=== PATIENT | female | born 1935 | race Caucasian/White ===

== ENCOUNTER 2022-12-26 18:24 | Outpatient (CLI) | payer MEDICARE | END 2022-12-26 23:59 | disposition critical access hospital (66) | LOC: EMS 18:24 | DX: R51.9 Headache, unspecified (principal); W18.30XA Fall on same level, unspecified, initial encounter; Y92.099 Unspecified place in other non-institutional residence as the place of occurrence of the external cause; U07.1 COVID-19 | CPT/HCPCS: A0425; A0429 ==

== ENCOUNTER 2022-12-26 18:57 | Emergency (ER) | payer MEDICARE ==
--- NOTE | 2022-12-26 20:42 | ED Physician Documentation ---
PD HPI HEAD INJURY - Stated complaint Stated Complaint: C+, GLF, HIT HEAD - Chief complaint Chief Complaint: Trauma Hd/Nk - History obtained from History obtained from: Patient, Family - Additional information Additional information: Patient is an 87-year-old female with a history of dementia lives at a [facility]ci/memory care unit. Today she was found on the ground and has a small bump to the back of her head. She is not on blood thinners. She does not know what happened. No other history is available. Review of Systems Unable to obtain: Dementia PD PAST MEDICAL HISTORY - Past Medical History Past Medical History: Yes Cardiovascular: Hypertension, High cholesterol Neuro: Dementia Endocrine/Autoimmune: Type 2 diabetes - Present Medications Home Medications: Ambulatory Orders Medication Instructions Recorded Confirmed Donepezil [Aricept] 5 mg PO DAILY 12/26/22 12/26/22 Meloxicam [Mobic] 7.5 mg PO DAILY 12/26/22 12/26/22 Metoprolol Succinate 100 mg PO QPM 12/26/22 12/26/22 Sertraline HCl [Zoloft] 50 mg PO DAILY 12/26/22 12/26/22 Simvastatin [Zocor] 40 mg PO DAILY 12/26/22 12/26/22 metFORMIN [Glucophage] 500 mg PO BIDWM 12/26/22 12/26/22 - Allergies Allergies/Adverse Reactions: Allergies Allergy/AdvReac Type Severity Reaction Status Date / Time No Known Drug Allergies Allergy Verified 12/26/22 19:09 - Social History Does the pt smoke?: No Smoking Status: Never smoker PD ED PE NORMAL - Vitals Vital signs reviewed: Yes - General General: No acute distress, Well developed/nourished, Other (Alert, pleasantly confused.) - HEENT HEENT: PERRL, Moist mucous membranes, Pharynx benign, Other (Small posterior scalp hematoma. No palpable skull fractures.) - Neck Neck: Supple, no meningeal sign, No bony TTP - Cardiac Cardiac: RRR - Respiratory Respiratory: No respiratory distress, Clear bilaterally - Abdomen Abdomen: Soft, Non tender, Non distended - Back Back: No spinal TTP - Derm Derm: Warm and dry - Extremities Extremities: Normal ROM s pain - Neuro Neuro: measurement and sensing technician 2-12 intact, No motor deficit, No sensory deficit, Normal speech Eye Opening: Spontaneous Motor: Obeys Commands Verbal: Confused GCS Score: 14 Results - Vitals Vitals: Vital Signs - 24 hr 12/26/22 12/26/22 18:57 22:06 Temperature 37.3 C Heart Rate 70 64 Respiratory 16 16 Rate Blood Pressure 204/89 H 186/82 H O2 Saturation 96 99 Oxygen O2 Source Room air - Rads (name of study) head CT Relevant Findings:: Final report received, See rad report PD Medical Decision Making - ED course Complexity details: reviewed results, re-evaluated patient, considered differential, d/w family ED course: 87-year-old female with dementia status post unwitnessed ground-level fall. Her daughter is here with her. The patient is not on any blood thinners. We discussed head CT and they would like to have the head CT. Head CT is negative. There are no other acute injuries. No fevers. No vomiting. No indication for blood work or urinalysis at this time. Patient is at her normal mental baseline. Family counseled regarding signs and symptoms for which I believe and urgent re-evaluation would be necessary. Family with good understanding of and agreement to plan and is comfortable going home at this time This document was made in part using voice recognition software. While efforts are made to proofread this document, sound alike and grammatical errors may oc cur. Departure - Departure Disposition: 01 Home, Self Care Clinical Impression: Closed head injury Qualifiers: Encounter type: initial encounter Qualified Code(s): S09.90XA - Unspecified injury of head, initial encounter Condition: Good Instructions: ED Head Injury Closed Follow-Up: your,doctor as needed [Other] Comments: Her head CT does not show any acute abnormalities tonight. Please follow-up with her doctor for further care. Please return if she worsens. Discharge Date/Time: 12/26/22 22:06
--- NOTE | 2022-12-26 21:35 | CT Report ---
PROCEDURE: HEAD WO INDICATIONS: fall, head injury TECHNIQUE: Noncontrast 4.5 mm thick angled axial sections acquired from the foramen magnum to the vertex. For r adiation dose reduction, the following was used: automated exposure control, adjustment of mA and/or kV according to patient size. COMPARISON: None. FINDINGS: Image quality: There is extensive motion artifact limiting evaluation. CSF spaces: There is moderate cerebral volume loss with prominence of the ventricles and sulci. Basa l cisterns are patent. No extra-axial fluid collections. Brain: No definite intracranial hemorrhage, mass, or mass effect. Mireles-white matter interface is pre served. There are subcortical and periventricular white matter hypodensities consistent with moderate chronic small vessel ischemic changes. Skull and face: Calvarium and visualized facial bones are intact, without suspicious lesions. Sinuses: Visualized sinuses and mastoids are clear. IMPRESSION: 1. No definite acute intracranial abnormality, with evaluation limited by motion artifact. Consider a repeat study when clinically feasible if indicated. 2. Moderate cerebral volume loss and chronic white matter small vessel ischemic changes. Reviewed by: Frankie Watkins MD on 12/26/2022 9:34 PM PDT Approved by: Frankie Watkins MD on 12/26/2022 9:34 PM PDT Station ID: [id number]
[2022-12-26 22:06] VITALS: BP 186/82
== END 2022-12-26 22:06 | disposition home or self-care (01) ==
LOC: ED 18:57
DX: S09.90XA Unspecified injury of head, initial encounter (principal); W19.XXXA Unspecified fall, initial encounter; Y92.199 Unspecified place in other specified residential institution as the place of occurrence of the external cause; F03.90 Unspecified dementia, unspecified severity, without behavioral disturbance, psychotic disturbance, mood disturbance, and anxiety
CPT/HCPCS: 99282; 99284

== ENCOUNTER 2023-01-04 05:50 | Outpatient (CLI) | payer MEDICARE | END 2023-01-04 23:59 | disposition critical access hospital (66) | LOC: EMS 05:50 | DX: S00.01XA Abrasion of scalp, initial encounter (principal); S20.229A Contusion of unspecified back wall of thorax, initial encounter; W18.30XA Fall on same level, unspecified, initial encounter; Y92.091 Bathroom in other non-institutional residence as the place of occurrence of the external cause | CPT/HCPCS: A0425; A0429 ==

== ENCOUNTER 2023-01-04 06:15 | Emergency (ER) | payer MEDICARE ==
--- NOTE | 2023-01-04 06:58 | ED Physician Documentation ---
PD HPI Fall - Stated complaint Stated Complaint: GLF/HEAD INJ - Chief complaint Chief Complaint: Trauma Hd/Nk - History obtained from History obtained from: Patient, Family (daughter states the patient has had less intake recently and less fluid intake.), EMS (Medics called by [facility] staff due to finding patient on floor, la on back of head. Unwitnessed fall. Patient alert and responsive. Does not remember circumstances.) - History of Present Illness Mechanism of injury: Unknown Fall distance: Standing position Where injury occurred: Other ([facility]) Timing - onset: Today Injury(ies) location: Head Associated symptoms: No: AMS, Neck pain, Nausea / vomiting Worsens with: Palpation Contributing factors: No: Anticoagulated Similar symptoms before: No diagnosis (had a fall with striking back of head within the last month, and appeared at baseline dementia/interaction at that time, per prior ER note.) Recently seen: Emergency Dept (for similar fall and had head CT. No other testing at that time. Dx with COVID the day prior to that and is still in recovering from the illness.) Review of Systems Unable to obtain: Dementia, Other (she is able to answer about current symptoms.) Eyes: denies: Loss of vision Cardiac: denies: Chest pain / pressure GI: denies: Abdominal Pain, Nausea, Vomiting Neurologic: denies: Focal weakness, Headache PD PAST MEDICAL HISTORY - Past Medical History Past Medical History: Yes Cardiovascular: Hypertension, High cholesterol Neuro: Dementia Endocrine/Autoimmune: Type 2 diabetes - Past Surgical History Past Surgical History: No - Present Medications Home Medications: Ambulatory Orders Medication Instructions Recorded Confirmed Donepezil [Aricept] 5 mg PO DAILY 12/26/22 01/04/23 Meloxicam [Mobic] 7.5 mg PO DAILY 12/26/22 01/04/23 Metoprolol Succinate 100 mg PO QPM 12/26/22 01/04/23 Sertraline HCl [Zoloft] 50 mg PO DAILY 12/26/22 01/04/23 Simvastatin [Zocor] 40 mg PO DAILY 12/26/22 01/04/23 metFORMIN [Glucophage] 500 mg PO BIDWM 12/26/22 01/04/23 Magnesium Oxide [Mag Ox] 400 mg PO DAILY #10 tablet 01/04/23 - Allergies Allergies/Adverse Reactions: Allergies Allergy/AdvReac Type Severity Reaction Status Date / Time No Known Drug Allergies Allergy Verified 12/26/22 19:09 - Social History Does the pt smoke?: No Smoking Status: Never smoker Does the pt drink ETOH?: No Does the pt have substance abuse?: No - Immunizations Immunizations are current?: Yes - POLST Patient has POLST: No PD ED PE NORMAL - Vitals Vital signs reviewed: Yes (elevated blood pressure) - General General: Alert and oriented X 3, No acute distress, Well developed/nourished, Other (She seems unaware of being injury and expressed surprise when told she had fallen and had laceration on her scalp. ) - HEENT HEENT: Other (laceration at occiput with some tenderness. About 1.5 cm with mild bleeding. ) - Neck Neck: Supple, no meningeal sign, No bony TTP - Cardiac Cardiac: RRR - Respiratory Respiratory: Clear bilaterally, Other (no chestwall tenderness) - Abdomen Abdomen: Soft, Non tender - Derm Derm: Normal color, Warm and dry - Extremities Extremities: Normal ROM s pain - Neuro Neuro: No motor deficit, No sensory deficit, Normal speech Eye Opening: Spontaneous Motor: Obeys Commands Verbal: Confused GCS Score: 14 Results - Vitals Vitals: Vital Signs - 24 hr 01/04/23 01/04/23 01/04/23 06:21 06:25 07:10 Temperature 36.4 C L Heart Rate 64 64 67 Respiratory 17 21 16 Rate Blood Pressure 191/92 H 191/92 H 220/111 H O2 Saturation 95 96 99 01/04/23 01/04/23 01/04/23 07:58 09:04 09:30 Temperature Heart Rate 64 56 L 65 Respiratory 16 16 16 Rate Blood Pressure 172/95 H 202/99 H 197/80 H O2 Saturation 97 100 96 01/04/23 10:00 Temperature Heart Rate 62 Respiratory 16 Rate Blood Pressure 190/78 H O2 Saturation 96 Oxygen O2 Source Room air - Labs Labs: Laboratory Tests 01/04/23 01/04/23 01/04/23 07:19 07:19 07:19 WBC 12.2 H RBC 3.92 L Hgb 11.5 L Hct 33.1 L MCV 84.4 MCH 29.3 MCHC 34.7 RDW 12.4 Plt Count 399 MPV 9.4 Neut # (Auto) 9.3 H Lymph # (Auto) 1.0 L [place] # (Auto) 1.1 H Eos # (Auto) 0.4 Baso # (Auto) 0.1 Absolute Nucleated RBC 0.00 Nucleated RBC % 0.0 Sodium 123 L Potassium 3.5 Chloride 87 L Carbon Dioxide 25 Anion Gap 11.0 BUN 20 Creatinine 0.8 Estimated GFR (MDRD) 68 L Glucose 130 H Calcium 9.5 Magnesium 1.5 L Total Bilirubin 0.6 AST 27 ALT 25 Alkaline Phosphatase 83 Total Protein 7.2 Albumin 3.8 Globulin 3.4 Albumin/Globulin Ratio 1.1 Lipase 62 H TSH 0.78 - Rads (name of study) head CT Relevant Findings:: Prelim report reviewed, EMP independent interpretation of test (age related changes. No noted ICH. ), See rad report Procedures - Laceration (location) occipital scalp Length in cm: 1 (has some bleeding coming from it. ) Wound type: Linear, Into subcut fat, Clean Neurovascular status: Sensory intact Anesthesia: Lidocaine 1% with epi Wound preparation: Irrigated copiously NS, Wound explored, To the base Skin layer closure: Nylon, Interrupted, Size #-0 - enter number (4), Sutures - enter # (2) Other: Patient tolerated well, No complications, Tetanus UTD PD Medical Decision Making - ED course Complexity details: reviewed results (electrolyte imbalance with Mag 1.5 and Potassium 123. She is alert and conversant though, suggesting likely chronic hyponatremia. I do not have prior labs available.), considered differential (seems fall with head impact. She has had 2 falls recently which daughter says is unusual for her. I felt further testing for labs indicated. ), d/w patient, d/w family (daughter gave info of pt being ill the past 1-2 weeks with less oral intkae and having general weakness. ) Drug Therapy Requiring Monitoring for Toxicity: given IV fluids for less intake by report. No edema nor crackles. BP improved from high to moderate. She remains quite alert. Daughter says she is at baseline mentation with much forgetfulness. However is not seeming concussive. she is not much altered with the low sodium, which suggests more likely chronic low to some degree. Departure - Departure Disposition: 01 Home, Self Care Clinical Impression: Accidental fall, COVID-19, Decrease in appetite, Hyponatremia, Hypomagnesemia, Occipital scalp laceration Condition: Stable Record reviewed to determine appropriate education?: Yes Instructions: ED Laceration Scalp Stitch Or Stap Follow-Up: FABY NICE MD [Physician No Access] - Prescriptions: Magnesium Oxide [Mag Ox] 400 mg PO DAILY #10 tablet Comments: It is okay to wash and shower. Clean off the wound twice a day with soap and water, or peroxide and water. Apply some antibiotic ointment to it to keep it moist. Also to watch for signs of infection such as purulence, redness or increasing pain. Return to your primary care or the ER at the specified time for suture removal. Suture removal 8 to 10 days. You have had 2 falls over the past week. Presumably related to your recent viral illness with COVID and under hydration and less appetite. This seems to have affected some of your electrolytes with a low magnesium and low sodium. We have given you some IV supplements of these here in the ER but you will want to likely take a magnesium supplement for the next week or so. The salt will correct which is normal intake of food and I would not suggest higher salt foods, especially in light of her your high blood pressure. Otherwise continue your current medications. Have your primary care recheck your electrolytes next week to see if they are looking more in line. If they remain low then other consideration may be a side effect to one of your medicines. Of your medications, the only one I found associated with hyponatremia (low sodium) is the sertraline. If your low sodium is persistent then that may need to be decreased. Otherwise improve intake fluids and food now that you are feeling little bit better. Discharge Date/Time: 01/04/23 10:36
[2023-01-04 07:28] LABS: BASOPHILS # (AUTO) 0.1 10^3/uL (0.0-0.1); BASOPHILS % (AUTO) 0.7 %; EOSINOPHILS # (AUTO) 0.4 10^3/uL (0.0-0.7); EOSINOPHILS % (AUTO) 3.1 %; HCT - HEMATOCRIT 33.1 % (37.0-47.0); HGB - HEMOGLOBIN 11.5 g/dL (12.0-16.0); LYMPHOCYTES % (AUTO) 7.9 %; MEAN CORPUSCULAR HEMOGLOBIN 29.3 pg (27.0-31.0); MEAN CORPUSCULAR HGB CONC 34.7 g/dL (32.0-36.0); MEAN CORPUSCULAR VOLUME 84.4 fL (81.0-99.0); MEAN PLATELET VOLUME 9.4 fL (7.9-10.8); MONOCYTES # (AUTO) 1.1 10^3/uL (0.0-1.0); MONOCYTES % (AUTO) 8.9 %; NEUTROPHILS # (AUTO) 9.3 10^3/uL (1.5-6.6); NEUTROPHILS % (AUTO) 76.2 %; PLT - PLATELET COUNT 399 10^3/uL (130-450); RED BLOOD COUNT 3.92 10^6/uL (4.20-5.40); RED CELL DISTRIBUTION WIDTH 12.4 % (12.0-15.0); WHITE BLOOD COUNT 12.2 x10^3/uL (4.8-10.8)
[2023-01-04] MEDS ORDERED: METOPROLOL SUCCINATE 50 MG TABLET PO STA (07:32)
[2023-01-04 07:35] LABS: ALBUMIN 3.8 g/dL (3.2-5.5); ALBUMIN/GLOBULIN RATIO 1.1 (1.0-2.2); BILIRUBIN,TOTAL 0.6 mg/dL (0.2-1.0); CALCIUM 9.5 mg/dL (8.5-10.3); CREATININE 0.8 mg/dL (0.4-1.0); MAGNESIUM 1.5 mg/dL (1.7-2.8); POTASSIUM 3.5 mmol/L (3.5-5.0); TOTAL PROTEIN 7.2 g/dL (6.7-8.2)
[2023-01-04] MEDS ORDERED: SODIUM CHLORIDE 0.9% 1,000 ML IV STA (07:49)
[2023-01-04] MEDS ORDERED: MAGNESIUM SULFATE 2 GRAM 2 GM/50 ML BAG IV ONE (08:11)
--- NOTE | 2023-01-04 08:22 | CT Report ---
PROCEDURE: HEAD WO INDICATIONS: head injury TECHNIQUE: Noncontrast 4.5 mm thick angled axial sections acquired from the foramen magnum to the vertex. For r adiation dose reduction, the following was used: automated exposure control, adjustment of mA and/or kV according to patient size. COMPARISON: None. FINDINGS: Image quality: Excellent. The ventricular system and cortical sulci demonstrate atrophy, consistent for patient's stated age. There are areas of hypodensity in the periventricular and subcortical white matter. There is no acut e intra or extra-axial fluid collection. No acute hemorrhage, mass lesion or midline shift. Brainst em is unremarkable. Globes are symmetrical. Sinuses are aerated. Osseous structures are intact. Posterior scalp hematoma is present. IMPRESSION: 1. No acute intracranial process. 2. Moderate atrophy and chronic microvascular ischemic changes. 3. Posterior scalp hematoma. Reviewed by: Delia Mills MD on 01/04/2023 8:21 AM PDT Approved by: Delia Mills MD on 01/04/2023 8:21 AM PDT Station ID: [id number]
[2023-01-04 10:14] VITALS: BP 190/78
== END 2023-01-04 10:36 | disposition home or self-care (01) ==
LOC: EDUNIT# → ED 06:15
DX: S01.01XA Laceration without foreign body of scalp, initial encounter (principal); W19.XXXA Unspecified fall, initial encounter; U07.1 COVID-19; E87.1 Hypo-osmolality and hyponatremia; E83.42 Hypomagnesemia; I10 Essential (primary) hypertension; E11.9 Type 2 diabetes mellitus without complications; Z79.84 Long term (current) use of oral hypoglycemic drugs
CPT/HCPCS: 36415; 70450; 80053; 83690; 83735; 84443; 85025; 93005; 96365; 99284; A9270

== ENCOUNTER 2023-02-02 19:24 | Outpatient (CLI) | payer MEDICARE | END 2023-02-02 23:59 | disposition critical access hospital (66) | LOC: EMS 19:24 | DX: S51.011A Laceration without foreign body of right elbow, initial encounter (principal); R11.10 Vomiting, unspecified; W18.30XA Fall on same level, unspecified, initial encounter; Y92.099 Unspecified place in other non-institutional residence as the place of occurrence of the external cause | CPT/HCPCS: A0425; A0429 ==

== ENCOUNTER 2023-02-02 19:50 | Emergency (ER) | payer MEDICARE ==
--- NOTE | 2023-02-02 20:05 | ED Physician Documentation ---
History of Present Illness - Stated complaint Stated Complaint: FELL X 2, VOMITING - Additonal information Additional information: Patient is 87-year-old female with known history of Alzheimer's dementia, gait disturbance, neuropathy in her lower extremities presenting today via EMS after to ask falls. Comes from [facility]. Report per EMS is 1 episode vomiting in between falls. Presents with right elbow skin tear. Is amnestic to events and is unable to provide further history. Denies headache, chest pain, neck pain, chest pain, abdominal pain.No current anticoagulants listed in her medications list. Review of Systems Unable to obtain: Dementia PD PAST MEDICAL HISTORY - Past Medical History Cardiovascular: Hypertension, High cholesterol Neuro: Dementia Endocrine/Autoimmune: Type 2 diabetes - Past Surgical History Past Surgical History: No - Present Medications Home Medications: Ambulatory Orders Medication Instructions Recorded Confirmed Donepezil [Aricept] 5 mg PO DAILY 12/26/22 01/04/23 Meloxicam [Mobic] 7.5 mg PO DAILY 12/26/22 01/04/23 Metoprolol Succinate 100 mg PO QPM 12/26/22 01/04/23 Sertraline HCl [Zoloft] 50 mg PO DAILY 12/26/22 01/04/23 Simvastatin [Zocor] 40 mg PO DAILY 12/26/22 01/04/23 metFORMIN [Glucophage] 500 mg PO BIDWM 12/26/22 01/04/23 Magnesium Oxide [Mag Ox] 400 mg PO DAILY #10 tablet 01/04/23 - Allergies Allergies/Adverse Reactions: Allergies Allergy/AdvReac Type Severity Reaction Status Date / Time No Known Drug Allergies Allergy Verified 12/26/22 19:09 - Social History Does the pt smoke?: No Smoking Status: Never smoker Does the pt drink ETOH?: No Does the pt have substance abuse?: No - Immunizations Immunizations are current?: Yes - POLST Patient has POLST: No PD ED PE NORMAL - General General: Alert and oriented X 3 (Alert to self), No acute distress, Well developed/nourished, Other - HEENT HEENT: Atraumatic, PERRL, EOMI, Ears normal - Neck Neck: Supple, no meningeal sign, No bony TTP, No adenopathy - Cardiac Cardiac: RRR, No gallop - Respiratory Respiratory: No respiratory distress, Clear bilaterally - Abdomen Abdomen: Normal bowel sounds, Soft, Non tender - Female Female : Deferred - Rectal Rectal: Deferred - Derm Derm: Other (There is a 1 cm skin tear to the right elbow. Full and complete range of motion to the right elbow, shoulder, wrist. Radial and ulnar pulses palpable. Normal capillary refill distal to the site of injury.) - Neuro Neuro: Alert and oriented X 3, court crier 2-12 intact, No motor deficit, Normal speech - Psych Psych: Normal mood Results - Vitals Vitals: Vital Signs - 24 hr 02/02/23 02/02/23 19:58 21:02 Temperature 36.4 C L Heart Rate 54 L 57 L Respiratory 18 18 Rate Blood Pressure 153/98 H 172/73 H O2 Saturation 99 99 Oxygen O2 Source Room air - EKG (time done) 2026 EKG releavant findings:: EKG personally interpreted by author of this note. Relevant findings are: Sinus rhythm with rate 87 bpm. Left axis deviation. ND notable prolonged at 204 ms. Normal QRS and QTc intervals. No ST segment elevations. Nonspecific ST and T wave abnormalities noted in the inferior leads. No change from previous 01/04/2023. - Labs Labs: Laboratory Tests 02/02/23 02/02/23 20:43 20:43 WBC 11.2 H RBC 3.68 L Hgb 10.5 L Hct 31.6 L MCV 85.9 MCH 28.5 MCHC 33.2 RDW 13.7 Plt Count 296 MPV 9.1 Neut # (Auto) 8.9 H Lymph # (Auto) 0.9 L [place] # (Auto) 1.0 Eos # (Auto) 0.1 Baso # (Auto) 0.1 Absolute Nucleated RBC 0.00 Nucleated RBC % 0.0 Sodium 125 L Potassium 4.5 Chloride 88 L Carbon Dioxide 24 Anion Gap 13.0 BUN 18 Creatinine 0.8 Estimated GFR (MDRD) 68 L Glucose 127 H Calcium 9.8 Total Bilirubin 0.7 AST 17 ALT 14 Alkaline Phosphatase 66 Total Protein 6.9 Albumin 3.9 Globulin 3.0 Albumin/Globulin Ratio 1.3 Lipase 53 H PD Medical Decision Making - ED course Complexity details: reviewed results, re-evaluated patient, d/w family ED course: Patient is 87-year-old female presenting to the emergency department after fall times 2X at her care facility. Past medical significant for Alzheimer's dementia, gait disturbance, peripheral neuropathy. Afebrile, hemodynamically stable on arrival to the emergency department. Alert and orientated to person only but no focal or lateralizing neurologic deficits. Very small skin tear noted on the Right elbow but otherwise appropriate range of motion with no indications of underlying fracture. EKG as outlined above demonstrated a first-degree heart block, left axis deviation and some nonspecific ST changes unchanged from baseline but no clear indication of cardiac ischemia or dysrhythmia. Labs demonstrated a chronic hyponatremia slightly improved from baseline from approximately 1 month ago.Patient also has low level anemia not significantly different from previous. Initial interpretation of CT head and C-spine negative for acute fracture or bony abnormality. Formally by radiology shows no significant traumatic injury but significant degenerative changes to the cervical spine as well as an incidental finding of a 3.3 cm thyroid mass. Information communicated directly with patient and patient's caregiver was present at bedside. Patient monitored in the emergency department for several hours without recurrent episodes of vomiting. Discussed findings with patient's daughter who is present at bedside. Will discharge back to her care facility at this time. Encourage careful follow-up with primary care. Clear return precautions given. Departure - Departure Disposition: 01 Home, Self Care Clinical Impression: Chronic hyponatremia, Thyroid mass Fall Qualifiers: Encounter type: initial encounter Qualified Code(s): W19.XXXA - Unspecified fall, initial encounter Dementia Qualifiers: Dementia type: Alzheimer's Alzheimer's disease onset: unspecified onset Dementia severity: unspecified severity Dementia behavioral or psychological symptom: unspecified whether behavioral, psychotic, or mood disturbance or anxiety Qualified Code(s): G30.9 - Alzheimer's disease, unspecified; F02.80 - Dementia in other diseases classified elsewhere, unspecified severity, without behavioral disturbance, psychotic disturbance, mood disturbance, and anxiety Comments: Thank you for allowing us to care for Heydi today at [facility]. Today in the emergency department she was evaluated for any possible life- threatening medical emergency. Overall the testing performed today including her blood work, EKG, and the CT scans of her head and cervical spine were all very reassuring. There is no finding of traumatic injury however there was an incidental finding of a 3.3 cm thyroid mass. This would be an issue to discuss with her primary care doctor to decide whether or not you would like to follow-up with outpatient testing such as a dedicated ultrasound or biopsy to this site. I do recommend careful follow-up with her primary care doctor and continued encouragement to use ambulatory assist devices at all times at her care facility. If it anytime she has new or worsening symptoms please not hesitate to return.
[2023-02-02 20:49] LABS: BASOPHILS # (AUTO) 0.1 10^3/uL (0.0-0.1); BASOPHILS % (AUTO) 0.6 %; EOSINOPHILS # (AUTO) 0.1 10^3/uL (0.0-0.7); EOSINOPHILS % (AUTO) 1.2 %; HCT - HEMATOCRIT 31.6 % (37.0-47.0); HGB - HEMOGLOBIN 10.5 g/dL (12.0-16.0); LYMPHOCYTES # (AUTO) 0.9 10^3/uL (1.5-3.5); LYMPHOCYTES % (AUTO) 8.3 %; MEAN CORPUSCULAR HEMOGLOBIN 28.5 pg (27.0-31.0); MEAN CORPUSCULAR HGB CONC 33.2 g/dL (32.0-36.0); MEAN CORPUSCULAR VOLUME 85.9 fL (81.0-99.0); MEAN PLATELET VOLUME 9.1 fL (7.9-10.8); MONOCYTES % (AUTO) 8.9 %; NEUTROPHILS # (AUTO) 8.9 10^3/uL (1.5-6.6); NEUTROPHILS % (AUTO) 80.1 %; PLT - PLATELET COUNT 296 10^3/uL (130-450); RED BLOOD COUNT 3.68 10^6/uL (4.20-5.40); RED CELL DISTRIBUTION WIDTH 13.7 % (12.0-15.0); WHITE BLOOD COUNT 11.2 x10^3/uL (4.8-10.8)
[2023-02-02 21:01] LABS: ALBUMIN 3.9 g/dL (3.2-5.5); ALBUMIN/GLOBULIN RATIO 1.3 (1.0-2.2); BILIRUBIN,TOTAL 0.7 mg/dL (0.2-1.0); CALCIUM 9.8 mg/dL (8.5-10.3); CREATININE 0.8 mg/dL (0.4-1.0); POTASSIUM 4.5 mmol/L (3.5-5.0); TOTAL PROTEIN 6.9 g/dL (6.7-8.2)
[2023-02-02] MEDS ORDERED: BACITRACIN ZINC OINT 1 PACKET TOP STA (21:13)
--- NOTE | 2023-02-02 21:54 | CT Report ---
PROCEDURE: CERVICAL SPINE WO INDICATIONS: fall, unknown LOC TECHNIQUE: Noncontrast 3 mm thick sections acquired from the skull base to the T4 level. Sagittal and coronal r eformats were then constructed. For radiation dose reduction, the following was used: automated exp osure control, adjustment of mA and/or kV according to patient size. COMPARISON: None. FINDINGS: Image quality: Excellent. Bones: No fractures or dislocations but there is moderately severe to severe degenerative disc disea se and facet osteoarthritis over the middle and lower thirds of the cervical spine. No traumatic subl uxation is seen. Visualized superior ribs are intact. Soft tissues: Prevertebral soft tissues are normal in thickness. No paravertebral hematomas. No ap ical pneumothoraces. Note is made of a 3.3 cm enlargement of the left thyroid lobe, inferiorly. IMPRESSION: No trauma to the cervical spine is seen but there is moderately severe to severe degenerative changes along the middle and lower thirds of the cervical spine. An unexpected finding is a 3.3 cm masslike structure at the left thyroid lobe inferiorly, and therefo re elective follow-up thyroid ultrasound is recommended. Reviewed by: Cooper Coulter MD on 02/02/2023 9:53 PM PDT Approved by: Cooper Coulter MD on 02/02/2023 9:53 PM PDT Station ID: [id number]
--- NOTE | 2023-02-02 21:59 | CT Report ---
PROCEDURE: HEAD WO INDICATIONS: Fall, unknown LOC TECHNIQUE: Noncontrast 4.5 mm thick angled axial sections acquired from the foramen magnum to the vertex. For r adiation dose reduction, the following was used: automated exposure control, adjustment of mA and/or kV according to patient size. COMPARISON: Prior head CT 01/04/2023.. FINDINGS: Image quality: Excellent. CSF spaces: Basal cisterns are patent. No extra-axial fluid collections. Ventricles are normal in size and shape. Brain: No midline shift. No intracranial masses or hemorrhage. Mireles-white matter interface is norm al. Skull and face: Calvarium and visualized facial bones are intact, without suspicious lesions. Sinuses: Visualized sinuses and mastoids are clear. IMPRESSION: No trauma found, age related microvascular atherosclerotic change is present within the deep white matter of each hemisphere with associated mild to moderate brain parenchymal atrophy. Reviewed by: Cooper Coulter MD on 02/02/2023 9:58 PM PDT Approved by: Cooper Coulter MD on 02/02/2023 9:58 PM PDT Station ID: [id number]
[2023-02-02 22:14] VITALS: BP 152/108
== END 2023-02-02 22:28 | disposition home or self-care (01) ==
LOC: EDUNIT# → ED 19:50
DX: G30.9 Alzheimer's disease, unspecified (principal); F02.80 Dementia in other diseases classified elsewhere, unspecified severity, without behavioral disturbance, psychotic disturbance, mood disturbance, and anxiety; E87.1 Hypo-osmolality and hyponatremia; E07.9 Disorder of thyroid, unspecified; W19.XXXA Unspecified fall, initial encounter; Z91.81 History of falling; I10 Essential (primary) hypertension
CPT/HCPCS: 36415; 70450; 72125; 80053; 83690; 85025; 93005; 99283; 99284; A9270

== ENCOUNTER 2023-03-27 01:54 | Outpatient (CLI) | payer MEDICARE | END 2023-03-27 01:55 | disposition EMS.NT | LOC: EMS 01:54 | DX: Z03.89 Encounter for observation for other suspected diseases and conditions ruled out (principal) ==

== ENCOUNTER 2023-04-09 15:27 | Outpatient (CLI) | payer MEDICARE | END 2023-04-09 23:59 | disposition critical access hospital (66) | LOC: EMS 15:27 | DX: S01.01XA Laceration without foreign body of scalp, initial encounter (principal); W18.30XA Fall on same level, unspecified, initial encounter; Y92.099 Unspecified place in other non-institutional residence as the place of occurrence of the external cause | CPT/HCPCS: A0425; A0429 ==

== ENCOUNTER 2023-04-09 15:54 | Emergency (ER) | payer MEDICARE ==
--- NOTE | 2023-04-09 16:01 | ED Physician Documentation ---
PD HPI Fall - Stated complaint Stated Complaint: GLF/HEAD LAC - History obtained from History obtained from: EMS - Additional information Additional information: 87-year-old woman who is up-to-date on tetanus per the record has severe gonzales ia. She was found down having had a ground-level fall at her assisted living home and has a cut on the back of her head. Patient has no specific complaints. She is at her baseline per EMS. PD PAST MEDICAL HISTORY - Past Medical History Cardiovascular: Hypertension, High cholesterol Neuro: Dementia Endocrine/Autoimmune: Type 2 diabetes - Past Surgical History Past Surgical History: No - Present Medications Home Medications: Ambulatory Orders Medication Instructions Recorded Confirmed Donepezil [Aricept] 5 mg PO DAILY 12/26/22 01/04/23 Meloxicam [Mobic] 7.5 mg PO DAILY 12/26/22 01/04/23 Metoprolol Succinate 100 mg PO QPM 12/26/22 01/04/23 Sertraline HCl [Zoloft] 50 mg PO DAILY 12/26/22 01/04/23 Simvastatin [Zocor] 40 mg PO DAILY 12/26/22 01/04/23 metFORMIN [Glucophage] 500 mg PO BIDWM 12/26/22 01/04/23 Magnesium Oxide [Mag Ox] 400 mg PO DAILY #10 tablet 01/04/23 - Allergies Allergies/Adverse Reactions: Allergies Allergy/AdvReac Type Severity Reaction Status Date / Time No Known Drug Allergies Allergy Verified 12/26/22 19:09 - Social History Does the pt smoke?: No Smoking Status: Never smoker Does the pt drink ETOH?: No Does the pt have substance abuse?: No - Immunizations Immunizations are current?: Yes - POLST Patient has POLST: No PD ED PE NORMAL - Vitals Vital signs reviewed: Yes - General General: Other (She is alert, cooperative, oriented to person only.) - HEENT HEENT: PERRL, EOMI, Ears normal, Other (Small laceration on the occiput) - Neck Neck: Supple, no meningeal sign, No bony TTP - Respiratory Respiratory: No respiratory distress, Clear bilaterally - Abdomen Abdomen: Non tender - Neuro Neuro: home child care provider 2-12 intact Eye Opening: Spontaneous Motor: Obeys Commands Verbal: Confused GCS Score: 14 Results - Vitals Vitals: Vital Signs - 24 hr 04/09/23 15:59 Temperature 36.8 C Heart Rate 58 L Respiratory 18 Rate Blood Pressure 146/79 H O2 Saturation 100 Oxygen O2 Source Room air - Rads (name of study) CT of the head shows ischemic changes and chronic volume loss without acute abnormality. CT C-spine showing multilevel degenerative changes with no t Relevant Findings:: Final report received, EMP independent interpretation of test Procedures - Laceration (location) Occiput Length in cm: 1 Wound type: Linear, Into subcut fat Wound preparation: Irrigated copiously NS Skin layer closure: Dermabond Other: Tetanus UTD Departure - Departure Disposition: 01 Home, Self Care Clinical Impression: Laceration Dementia Qualifiers: Dementia type: unspecified type Dementia severity: severe Dementia behavioral or psychological symptom: with anxiety Qualified Code(s): F03.C4 - Unspecified dementia, severe, with anxiety Injury of head and neck Qualifiers: Encounter type: initial encounter Qualified Code(s): S09.90XA - Unspecified injury of head, initial encounter; S19.9XXA - Unspecified injury of neck, initial encounter Condition: Good Record reviewed to determine appropriate education?: Yes Instructions: ED Head Injury Closed, ED Laceration Facial Skin Glue Comments: CT of the head and cervical spine were negative for acute trauma. The scalp laceration was closed with glue as it was small and requires no specific care, soap and water/shampoo was fine. Call your doctor to arrange a follow-up appointment, make the next available appointment. In the interim, return anytime if worse or if new symptoms develop.
[2023-04-09 16:11] VITALS: BP 146/79
--- NOTE | 2023-04-09 16:31 | CT Report ---
PROCEDURE: CERVICAL SPINE WO INDICATIONS: head inj TECHNIQUE: Noncontrast 3 mm thick sections acquired from the skull base to the T4 level. Sagittal and coronal r eformats were then constructed. For radiation dose reduction, the following was used: automated exp osure control, adjustment of mA and/or kV according to patient size. COMPARISON: None. FINDINGS: Image quality: Excellent. Bones: No fractures or dislocations. Visualized superior ribs are intact. Soft tissues: Prevertebral soft tissues are normal in thickness. No paravertebral hematomas. No ap ical pneumothoraces. IMPRESSION: No acute abnormality of the cervical spine. Degenerative changes of the cervical spine. Multilevel degenerative changes of the cervical spine wit h disc disease most prominent at C4-5, C5-6, and C6-7. Reviewed by: Von Iqbal on 04/09/2023 3:29 PM ALFREDO Approved by: Von Iqbal on 04/09/2023 3:29 PM ALFREDO Station ID: [id number]
--- NOTE | 2023-04-09 16:32 | CT Report ---
PROCEDURE: HEAD WO INDICATIONS: head inj TECHNIQUE: Noncontrast 4.5 mm thick angled axial sections acquired from the foramen magnum to the vertex. For r adiation dose reduction, the following was used: automated exposure control, adjustment of mA and/or kV according to patient size. COMPARISON: None. FINDINGS: Image quality: Excellent. CSF spaces: Basal cisterns are patent. No extra-axial fluid collections. Ventricles are normal in size and shape. Brain: No midline shift. No intracranial masses or hemorrhage. Mireles-white matter interface is norm al. Subcortical and periventricular hypodensities are consistent with microvascular ischemic disease and age-related cerebral volume loss. Skull and face: Calvarium and visualized facial bones are intact, without suspicious lesions. Sinuses: Visualized sinuses and mastoids are clear. IMPRESSION: 1. No acute intracranial abnormality. 2. Microvascular ischemic disease and age-related cerebral volume loss. Reviewed by: Von Iqbal on 04/09/2023 3:30 PM ALFREDO Approved by: Von Iqbal on 04/09/2023 3:30 PM AKLILLIE Station ID: [id number]
== END 2023-04-09 17:10 | disposition home or self-care (01) ==
LOC: EDUNIT# → ED 15:54
DX: S09.90XA Unspecified injury of head, initial encounter (principal); S01.01XA Laceration without foreign body of scalp, initial encounter; S19.9XXA Unspecified injury of neck, initial encounter; W18.30XA Fall on same level, unspecified, initial encounter; Y92.099 Unspecified place in other non-institutional residence as the place of occurrence of the external cause; F03.C4 Unspecified dementia, severe, with anxiety; I10 Essential (primary) hypertension; E78.00 Pure hypercholesterolemia, unspecified; E11.9 Type 2 diabetes mellitus without complications; Z79.899 Other long term (current) drug therapy; Z79.84 Long term (current) use of oral hypoglycemic drugs
CPT/HCPCS: 12001; 99283; 99284

== ENCOUNTER 2023-04-10 11:09 | Outpatient (CLI) | payer MEDICARE | END 2023-04-10 23:59 | disposition home or self-care (01) | LOC: EMS 11:09 | DX: S00.03XA Contusion of scalp, initial encounter (principal); W18.30XA Fall on same level, unspecified, initial encounter; Y92.092 Bedroom in other non-institutional residence as the place of occurrence of the external cause | CPT/HCPCS: A0425; A0429 ==

== ENCOUNTER 2023-04-10 11:39 | Emergency (ER) | payer MEDICARE ==
--- NOTE | 2023-04-10 11:47 | ED Physician Documentation ---
PD HPI Fall - Stated complaint Stated Complaint: FALL/HEAD INJ - History obtained from History obtained from: EMS - Additional information Additional information: 87-year-old woman had a ground-level fall yesterday unwitnessed at [facility]. She is demented. Work-up at the time was negative and had a small scalp laceration that was closed with glue. Reportedly fell again today. Was sitting in a chair and probably fell backwards. Unknown loss of consciousness as it was unwitnessed and the patient is too demented to give a reliable history. PD PAST MEDICAL HISTORY - Past Medical History Cardiovascular: Hypertension, High cholesterol Neuro: Dementia Endocrine/Autoimmune: Type 2 diabetes - Past Surgical History Past Surgical History: No - Present Medications Home Medications: Ambulatory Orders Medication Instructions Recorded Confirmed Donepezil [Aricept] 5 mg PO DAILY 12/26/22 01/04/23 Meloxicam [Mobic] 7.5 mg PO DAILY 12/26/22 01/04/23 Metoprolol Succinate 100 mg PO QPM 12/26/22 01/04/23 Sertraline HCl [Zoloft] 50 mg PO DAILY 12/26/22 01/04/23 Simvastatin [Zocor] 40 mg PO DAILY 12/26/22 01/04/23 metFORMIN [Glucophage] 500 mg PO BIDWM 12/26/22 01/04/23 Magnesium Oxide [Mag Ox] 400 mg PO DAILY #10 tablet 01/04/23 - Allergies Allergies/Adverse Reactions: Allergies Allergy/AdvReac Type Severity Reaction Status Date / Time No Known Drug Allergies Allergy Verified 12/26/22 19:09 - Social History Does the pt smoke?: No Smoking Status: Never smoker Does the pt drink ETOH?: No Does the pt have substance abuse?: No - Immunizations Immunizations are current?: Yes - POLST Patient has POLST: No PD ED PE NORMAL - Vitals Vital signs reviewed: Yes - General General: No acute distress, Other (Alert and oriented to person only) - HEENT HEENT: PERRL, EOMI, Other (Some blood in the back of the head, initial evalua tion is unclear if her prior wound opened back up or if there is a new wound, will reassess after wound cleansing and irrigation.) - Neck Neck: No bony TTP - Cardiac Cardiac: RRR, No murmur - Respiratory Respiratory: No respiratory distress, Clear bilaterally - Abdomen Abdomen: Non tender - Back Back: No spinal TTP - Derm Derm: Normal color, Warm and dry - Extremities Extremities: No deformity, No tenderness to palpate, Normal ROM s pain, No edema, No calf tenderness / cord - Neuro Eye Opening: Spontaneous Motor: Obeys Commands Verbal: Confused GCS Score: 14 Results - Vitals Vitals: Vital Signs - 24 hr 04/10/23 04/10/23 11:55 12:00 Temperature 36.2 C L Heart Rate 82 85 Respiratory 18 Rate Blood Pressure 145/77 H O2 Saturation 97 Oxygen O2 Source Room air - Labs Labs: Laboratory Tests 04/10/23 04/10/23 12:43 12:43 WBC 7.4 RBC 3.61 L Hgb 10.4 L Hct 33.1 L MCV 91.7 MCH 28.8 MCHC 31.4 L RDW 13.6 Plt Count 266 MPV 9.8 Neut # (Auto) 5.4 Lymph # (Auto) 1.[address] [facility] # (Auto) 0.7 Eos # (Auto) 0.2 Baso # (Auto) 0.1 Absolute Nucleated RBC 0.00 Nucleated RBC % 0.0 Sodium 137 Potassium 3.3 L Chloride 107 Carbon Dioxide 22 Anion Gap 8.0 BUN 26 H Creatinine 1.0 Estimated GFR (MDRD) 52 L Glucose 107 H Calcium 9.3 Total Bilirubin 0.7 AST 17 ALT 13 Alkaline Phosphatase 51 Total Protein 6.3 L Albumin 3.5 Globulin 2.8 Albumin/Globulin Ratio 1.3 - Rads (name of study) CT of the head and cervical spine are negative for intracranial injury or cervical spine fracture. Relevant Findings:: Final report received, EMP independent interpretation of test PD Medical Decision Making - ED course ED course: 2 falls in 2 days but is very demented 87-year-old woman. Daughter at the bedside shortly after initial evaluation. She has not noticed anything out of the ordinary that would necessarily cause to falls. We will order some screening blood work, daughter also interested in pursuing hospice and hospice consult placed as well as a email to the director. After cleansing I do not see a clear new laceration on the occiput. No signs or symptoms of UTI. Departure - Departure Disposition: 01 Home, Self Care Clinical Impression: Injury of head and neck Dementia Qualifiers: Dementia type: unspecified type Dementia severity: severe Dementia behavioral or psychological symptom: with agitation Qualified Code(s): F03.C11 - Unspecified dementia, severe, with agitation Condition: Good Record reviewed to determine appropriate education?: Yes Instructions: ED Dementia Caregiver Support, ED Head Injury Closed Comments: Social work not available today. Daughter actively looking for alternative disposition for safety and a hospice consult was placed which should happen soon.
--- NOTE | 2023-04-10 12:33 | CT Report ---
PROCEDURE: HEAD WO INDICATIONS: Head inj TECHNIQUE: Noncontrast 4.5 mm thick angled axial sections acquired from the foramen magnum to the vertex. For r adiation dose reduction, the following was used: automated exposure control, adjustment of mA and/or kV according to patient size. COMPARISON: CT head without, 04/09/2023, 02/02/2023. FINDINGS: Image quality: Excellent. CSF spaces: Basal cisterns are patent. No extra-axial fluid collections. Ventricles are normal in size and shape. Brain: No midline shift. No intracranial masses or hemorrhage. Mireles-white matter interface is norm al. Moderate cerebral volume loss and periventricular white matter chronic small vessel ischemic dillon nges. Skull and face: Calvarium and visualized facial bones are intact, without suspicious lesions. There is a moderate-sized left parietal scalp cephalohematoma. Sinuses: Visualized sinuses and mastoids are clear. IMPRESSION: 1. No acute intracranial abnormality. 2. Cerebral volume loss and periventricular white matter chronic small vessel changes. 3. Moderate sized left parietal scalp cephalohematoma. 4. No skull fractures. Reviewed by: Berto Pierson MD on 04/10/2023 12:30 PM PDT Approved by: Berto Pierson MD on 04/10/2023 12:30 PM PDT Station ID: [id number]
--- NOTE | 2023-04-10 12:37 | CT Report ---
PROCEDURE: CERVICAL SPINE WO INDICATIONS: Head inj TECHNIQUE: Noncontrast 3 mm thick sections acquired from the skull base to the T4 level. Sagittal and coronal r eformats were then constructed. For radiation dose reduction, the following was used: automated exp osure control, adjustment of mA and/or kV according to patient size. COMPARISON: CT cervical spine, 04/09/2023 and 02/02/2023. FINDINGS: Image quality: Excellent. Bones: No fractures or dislocations. Craniocervical junction is normal. Ootxblso-bj-miumgi degenerat carline disc and facet disease in cervical spine. There is grade 1 anterolisthesis of C2 on C3, C3 on C4, C4 on C5 and C7 on T1. Visualized superior ribs are intact. Soft tissues: Prevertebral soft tissues are normal in thickness. No paravertebral hematomas. No ap ical pneumothoraces. IMPRESSION: 1. No acute cervical spine fractures. Reviewed by: Berto Pierson MD on 04/10/2023 12:35 PM PDT Approved by: Berto Pierson MD on 04/10/2023 12:35 PM PDT Station ID: [id number]
[2023-04-10 12:48] LABS: BASOPHILS # (AUTO) 0.1 10^3/uL (0.0-0.1); BASOPHILS % (AUTO) 0.8 %; EOSINOPHILS # (AUTO) 0.2 10^3/uL (0.0-0.7); EOSINOPHILS % (AUTO) 3.2 %; HCT - HEMATOCRIT 33.1 % (37.0-47.0); HGB - HEMOGLOBIN 10.4 g/dL (12.0-16.0); MEAN CORPUSCULAR HEMOGLOBIN 28.8 pg (27.0-31.0); MEAN CORPUSCULAR HGB CONC 31.4 g/dL (32.0-36.0); MEAN CORPUSCULAR VOLUME 91.7 fL (81.0-99.0); MEAN PLATELET VOLUME 9.8 fL (7.9-10.8); MONOCYTES # (AUTO) 0.7 10^3/uL (0.0-1.0); MONOCYTES % (AUTO) 9.4 %; NEUTROPHILS # (AUTO) 5.4 10^3/uL (1.5-6.6); NEUTROPHILS % (AUTO) 72.2 %; PLT - PLATELET COUNT 266 10^3/uL (130-450); RED BLOOD COUNT 3.61 10^6/uL (4.20-5.40); RED CELL DISTRIBUTION WIDTH 13.6 % (12.0-15.0); WHITE BLOOD COUNT 7.4 x10^3/uL (4.8-10.8)
[2023-04-10 13:00] LABS: ALBUMIN 3.5 g/dL (3.2-5.5); ALBUMIN/GLOBULIN RATIO 1.3 (1.0-2.2); BILIRUBIN,TOTAL 0.7 mg/dL (0.2-1.0); CALCIUM 9.3 mg/dL (8.5-10.3); POTASSIUM 3.3 mmol/L (3.5-5.0); TOTAL PROTEIN 6.3 g/dL (6.7-8.2)
[2023-04-10] MEDS ORDERED: LORazepam 0.5 MG TABLET PO STA (13:23)
[2023-04-10 13:50] VITALS: BP 154/94
== END 2023-04-10 13:48 | disposition home or self-care (01) ==
LOC: EDUNIT# → ED 11:39
DX: S09.90XA Unspecified injury of head, initial encounter (principal); W19.XXXA Unspecified fall, initial encounter; Y92.199 Unspecified place in other specified residential institution as the place of occurrence of the external cause; S01.01XD Laceration without foreign body of scalp, subsequent encounter; W19.XXXD Unspecified fall, subsequent encounter; F03.C11 Unspecified dementia, severe, with agitation; R29.6 Repeated falls
CPT/HCPCS: 36415; 70450; 72125; 80053; 85025; 99283; 99284; A9270